=== PATIENT | male | born 1965 | race African-American/Black ===

== ENCOUNTER 2022-05-29 06:43 | Emergency (ER) | payer MEDICAID ==
[~2022-05-29] VITALS: Ht 172.7 cm; Wt 98.9 kg
[2022-05-29] MEDS ORDERED: AMLO10TA4 PO (07:14)
[2022-05-29] MEDS ORDERED: PROP20TA7 PO (07:14)
[2022-05-29] MEDS ORDERED: RAMI5CAP30 PO (07:14)
[2022-05-29] MEDS ORDERED: ASPIRIN 325 MG TABLET PO ONE (07:45)
[2022-05-29] MEDS ORDERED: ASPIRIN 325 MG TABLET ONE (07:53)
[2022-05-29 07:56] LABS: HEMATOCRIT 41.5 % (36.7-47.1); MEAN CORPUSCULAR HEMOGLOBIN 29.4 uug (23.8-33.4); MEAN CORPUSCULAR VOLUME 90.2 fL (73.0-96.2); PLATELET COUNT (AUTO) 176 K/uL (152-348)
[2022-05-29 08:12] LABS: CARBON DIOXIDE 31 mmol/L (21-32); CHLORIDE 105 mmol/L (98-107); CREATININE 1.2 mg/dL (0.6-1.3); GLUCOSE 89 mg/dL (74-106); POTASSIUM 3.8 mmol/L (3.5-5.1); UREA NITROGEN, BLOOD 15 mg/dL (7-18)
[2022-05-29 08:24] LABS: ALANINE AMINOTRANSFERASE 24 U/L (16-63); ALKALINE PHOSPHATASE 63 U/L (50-136); ASPARTATE AMINOTRANSFERASE 29 U/L (15-37); BILIRUBIN,DIRECT 0.2 mg/dL (0.0-0.2); BILIRUBIN,TOTAL 0.7 mg/dL (0.2-1.0)
[2022-05-29 09:00] LABS: TOTAL PROTEIN, SERUM 7.6 g/dL (6.4-8.2)
--- NOTE | 2022-05-29 10:15 | NUR ---
Pt arrive with c/o of palpitations w/o chest pain but with hx of cp. No other pertinent hx per pt. Pt manifesting tremors, no dx of parkinson's per pt. "I'm just cold." - per pt. Seen by ALIREZA for MSE.
[2022-05-29] MEDS ORDERED: LORAZEPAM 0.5 MG TABLET PO ONE (11:00)
[2022-05-29] MEDS ORDERED: LORAZEPAM 1 MG TABLET ONE (11:02)
--- NOTE | 2022-05-29 12:08 | NUR ---
[place] sandwich, orange juice and water given to the pt. No allergy/ies per pt.
--- NOTE | 2022-05-29 12:30 | NUR ---
Pt discharged to home in stable condition. Written and verbal after care instructions given. Pt verbalizes understanding of instructions. Stressed follow up or return to ER for worsening s/s.
[2022-05-29 12:36] VITALS: BP 141/85
== END 2022-05-29 12:30 | disposition home or self-care (01) ==
LOC: ER 07:13
DX: R00.2 Palpitations (principal); R07.9 Chest pain, unspecified; G25.0 Essential tremor; I10 Essential (primary) hypertension
CPT/HCPCS: 36415; 71045; 84484; 85025; 85730; A4663

== ENCOUNTER 2023-11-29 23:43 | Emergency (ER) | payer MEDICAID ==
[~2023-11-29] VITALS: Ht 175.3 cm; Wt 95.3 kg
[~2023-11-29 23:43] MED LIST: AMLO10TA4 PO; PROP20TA7 PO; RAMI5CAP30 PO
[2023-11-30 00:29] LABS: CALCIUM 8.8 mg/dL (8.5-10.1); CARBON DIOXIDE 31 mmol/L (21-32); CHLORIDE 106 mmol/L (98-107); CREATININE 1.2 mg/dL (0.6-1.3); GLUCOSE 87 mg/dL (74-106); POTASSIUM 3.5 mmol/L (3.5-5.1); SODIUM SERUM 144 mmol/L (136-145); UREA NITROGEN, BLOOD 21 mg/dL (7-18)
[2023-11-30 00:42] LABS: ALANINE AMINOTRANSFERASE 14 U/L (16-63); ALBUMIN 3.6 g/dL (3.4-5.0); ALKALINE PHOSPHATASE 55 U/L (50-136); ASPARTATE AMINOTRANSFERASE 12 U/L (15-37); BILIRUBIN,DIRECT 0.2 mg/dL (0.0-0.2); BILIRUBIN,TOTAL 0.6 mg/dL (0.2-1.0); NT-PRO BNP 157 pg/mL (0-125); TOTAL PROTEIN, SERUM 6.7 g/dL (6.4-8.2)
[2023-11-30 00:48] LABS: BASOPHILS % (AUTO) 0.6 % (0.0-2.0); EOSINOPHILS # (AUTO) 0.1 K/uL (0.0-0.7); EOSINOPHILS % (AUTO) 1.6 % (0.0-7.0); HEMATOCRIT 36.3 % (36.7-47.1); HEMOGLOBIN 12.1 g/dL (12.5-16.3); LYMPHOCYTES # (AUTO) 1.2 K/uL (0.8-4.8); LYMPHOCYTES % (AUTO) 20.9 % (20.5-51.5); MEAN CORPUSCULAR HEMOGLOBIN 30.2 uug (23.8-33.4); MEAN CORPUSCULAR HGB CONC 33 g/dL (32.5-36.3); MEAN CORPUSCULAR VOLUME 90.3 fL (73.0-96.2); MONOCYTES # (AUTO) 0.5 K/uL (0.1-1.30); MONOCYTES % (AUTO) 8.2 % (0.0-11.0); NEUTROPHILS # (AUTO) 3.9 K/uL (1.8-8.9); NEUTROPHILS % (AUTO) 68.7 % (38.5-71.5); PLATELET COUNT (AUTO) 137 K/uL (152-348); RED BLOOD CELL COUNT(AUTO) 4.02 MIL/uL (4.06-5.63); RED CELL DISTRIBUTION WIDTH 14.6 % (12.1-16.2); WHITE BLOOD COUNT (AUTO) 5.7 K/uL (3.6-10.2)
[2023-11-30] MEDS ORDERED: PROPRANOLOL HCL 10 MG TABLET ONE (02:34)
[2023-11-30 02:38] VITALS: BP 174/108
[2023-11-30] MEDS: PROPRANOLOL HCL 10 MG TABLET PO ONE (02:38)
[2023-11-30] MEDS ORDERED: PROP20TA7 PO (03:04)
[2023-11-30 03:35] VITALS: O2SAT 98
== END 2023-11-30 07:47 | disposition home or self-care (01) ==
LOC: ER 23:46
DX: R00.2 Palpitations (principal); Z79.899 Other long term (current) drug therapy
CPT/HCPCS: 36415; 71045; 72072; 83735; 84484; 85025; 85730; 93005; A4606; A4663